=== PATIENT | male | born 1980 | race Caucasian/White ===

== ENCOUNTER 2019-03-16 00:19 | Outpatient (CLI) | payer BC, SELFPAY ==
--- NOTE | 2019-03-16 12:20 | DI.US_ITS ---
EXAM: US SOFT TISS EXTREMITY/GROIN CLINICAL HISTORY: Left groin/INGUINAL PAIN, R10.32. TECHNIQUE: Ultrasound performed using standard protocol. COMPARISON: No exams were available for comparison FINDINGS: The ultrasound examination of the left groin reveals sonographic evidence of a left inguinal hernia. There is no evidence of inguinal adenopathy.
== END 2019-03-16 00:39 ==
PROVIDERS: PCP Family Medicine; Visit Provider Nurse Practitioner Family
DX: R10.32 Left lower quadrant pain (principal)
CPT/HCPCS: 76882

== ENCOUNTER 2019-12-14 07:49 | Outpatient (CLI) | payer OTHER, SELFPAY ==
[2019-12-19 19:14] LABS: SARS-CoV-2 RNA Undetected (Undetected); SARS-CoV-2 Specimen Source Nasopharynx
== END 2019-12-14 08:09 ==
PROVIDERS: PCP Family Medicine; Visit Provider Nurse Practitioner
DX: Z11.59 Encounter for screening for other viral diseases (principal)
CPT/HCPCS: U0003

== ENCOUNTER 2021-07-21 02:17 | Outpatient (CLI) | payer OTHER, SELFPAY ==
[2021-07-21 13:34] LABS: Anion Gap 7.2 mmol/L (3-11); BUN 9 mg/dL (7-18); CO2 27.8 mmol/L (21.0-32.0); CREATININE 0.8 mg/dL (0.70-1.30); Calcium 8.9 mg/dL (8.5-10.1); Calculated LDL 90 mg/dL (<100); Chloride 101 mmol/L (98-107); Cholesterol 169 mg/dL (<200); Glucose 84 mg/dL (74-106); HDL Cholesterol 53 mg/dL (40-60); Potassium 4.1 mmol/L (3.5-5.1); Sodium 136 mmol/L (136-145); Triglyceride 132 mg/dL (<150)
[2021-07-23 10:01] LABS: Hepatitis C Ab w Rflx HCV PCR Negative (Negative)
[2021-07-23 10:21] LABS: HIV-1/2 Ag & Ab Screen Negative (Negative)
== END 2021-07-21 02:18 | disposition home or self-care (01) ==
PROVIDERS: PCP Family Medicine; Visit Provider Family Medicine
DX: Z00.00 Encounter for general adult medical examination without abnormal findings (principal); Z13.220 Encounter for screening for lipoid disorders; Z11.4 Encounter for screening for human immunodeficiency virus [HIV]; Z11.59 Encounter for screening for other viral diseases
CPT/HCPCS: 36415; 80048; 80061; 86803; 87389